=== PATIENT | female | born 2005 | race Caucasian/White ===

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

== ENCOUNTER 2025-04-16 17:46 | Emergency (ER) | payer OTHER, SELFPAY ==
[2025-04-16 17:47] VITALS: BP 128/80; PULSE 124; RESP 16; TEMP 37.1; O2SAT 98; BMI 23.9
--- NOTE | 2025-04-16 18:01 | EX.ED.DYSGE1 ---
HPI <RADHA Arnett - Last Filed: 04/16/25 20:33> History of Present Illness Chief Complaint: Abd Pain Narrative Narrative: 20-year-old female presents with cramping lower abdominal pain that started around noon. Pain is in both lower quadrants and radiates around to bilateral low back. She took ibuprofen, Tylenol, and methocarbamol which she had from prior surgery without relief. She has nausea but no vomiting. No fever or chills. She had a few episodes of diarrhea over the last 2 days but no melena hematochezia. No urinary symptoms. She had an abdominal surgery on March 19, 2025 at [facility] with [employer]ENT, Dr. Roya Hickman for endometrial excision with appendectomy and IUD placement. She had been recovering well from that. No other abdominal surgeries. She finished her menstrual cycle couple days ago. PFSH <RADHA Arnett - Last Filed: 04/16/25 20:33> [facility] Medical History no medical history Allergy/AdvReac Type Severity Reaction Status Date / Time [facility] AdvReac Mild Hives Verified 04/16/25 17:47 Family History no significant family his Surgical History no surgical history Social History Smoking Status: Never smoker ROS <RADHA Arnett - Last Filed: 04/16/25 20:33> ROS ED ROS Narrative Constitutional: Negative for fever, chills, malaise. CVS: Negative for chest pain. Respiratory: Negative for shortness of breath. GI: Positive for abdominal pain, nausea, diarrhea. Negative for vomiting, constipation, melena, hematochezia. : Negative for dysuria, hematuria or frequency. EXAM <RADHA Arnett Last Filed: 04/16/25 20:33> Physical Exam Narrative Exam Narrative: CONST: Patient sitting in no acute distress. EYES: Normal inspection. NECK: Normal inspection. RESP: No respiratory distress, CTAB. CVS: Regular rate and rhythm, no murmur, no gallop. ABD: Soft with mild suprapubic tenderness, otherwise nontender, no guarding or rebound, nondistended. SKIN: Color normal, no rash, warm, dry, intact. EXTREMITIES: Normal appearance, no pedal edema. NEURO: Alert and answering questions appropriately. PSYCH: Normal affect. Const Vital Signs: 04/16/25 17:47 04/16/25 19:48 Temperature 98.7 F Temperature Source Temporal Pulse Rate 124 H 79 Respiratory Rate 16 16 Blood Pressure 128/80 H 113/64 Blood Pressure Mean 96 80 Pulse Ox 98 99 Oxygen Delivery Method Room Air Room Air <Dr. Juan Jose Gerard MD - Last Filed: 04/16/25 19:09> Physical Exam Const Vital Signs: 04/16/25 17:47 04/16/25 19:48 Temperature 98.7 F Temperature Source Temporal Pulse Rate 124 H 79 Respiratory Rate 16 16 Blood Pressure 128/80 H 113/64 Blood Pressure Mean 96 80 Pulse Ox 98 99 Oxygen Delivery Method Room Air Room Air MDM <RADHA Arnett - Last Filed: 04/16/25 20:33> MDM MDM Narrative Medical decision making narrative: 20-year-old female was evaluated for suprapubic cramping pain that started earlier today. She has a history of endometriosis with surgery about a month ago for excision of adhesions and appendectomy at the same time. She appears well and nontoxic. She is tachycardic at 124 with otherwise normal vital signs. She has an extremely benign abdominal exam with minimal suprapubic tenderness. CBC and BMP are normal. Urinalysis has 5-10 RBCs and 10-25 WBCs but is nitrite and bacteria negative. She has no urinary symptoms so antibiotics are indicated and will be sent for culture. I do not think she needs a CT scan. I have low concern for an infectious process as she has a normal white count, is afebrile, and reports she had 2 recent CAT scans in the last month that were normal. She was treated with Toradol and counseled take [id number] medications and was discharged in stable condition. I have personally performed a face to face assessment of the patient and have reviewed the RAFAEL Note. I performed a substantive portion of the visit including all aspects of the following. My ponce findings include: History is 20-year-old female history of endometriosis region surgery for takedown of adhesions about a month ago and appendectomy at the same time. Said she was doing well. Had some suprapubic lower abdominal pelvic pain this afternoon. Nausea but no vomiting. No diarrhea. No dysuria. She has had 2 recent CAT scans last several weeks that were unremarkable. 1 locally and 1 in [place] when she was there traveling. Exam is [well-appearing 20-year-old female. Vital signs stable afebrile. She does not look septic toxic. She is in no acute distress. H EENT exam pupils round reactive light. Moist pink members. Neck nontender no JVD. Lungs clear to auscultation. Heart tachycardic 110 no murmur. Chest wall ribs nontender. Abdomen soft nondistended normal bowel sounds without peritoneal signs. Very mild suprapubic discomfort. No hernia or mass. No distention. No signs of obstruction. No localizing right upper or right lower quadrant tenderness. Very benign abdominal exam. Moving all 4 extremities. Nontender. No edema. Back nontender. Neurologically she is awake and alert. No focal motor deficits.] Medical Decision Making [20-year-old female history of endometriosis, prior appendectomy and history of ovarian cysts complaining of suprapubic lower abdominal and pelvic pain. Labs to be obtained. Exam is benign I do not think she needs imaging at this time.] Other additions or changes: [None] Lab Data Labs: Laboratory Results - last 24 hr 04/16/25 04/16/25 18:07 18:15 WBC 6.5 RBC 4.50 Hgb 13.2 Hct 38.9 MCV 86.4 MCH 29.3 MCHC 33.9 RDW Std Deviation 41.6 RDW Coeff of Bri 13.3 Plt Count 207 MPV 12.0 Immature Gran % (Auto) 0.200 Neut % (Auto) 59.1 Lymph % (Auto) 28.3 [place] % (Auto) 10.7 H Eos % (Auto) 1.1 Baso % (Auto) 0.6 Absolute Neuts (auto) 3.9 Absolute Lymphs (auto) 1.85 Nucleated RBC % 0 Sodium 138 Potassium 3.8 Chloride 103 Carbon Dioxide 22.6 Anion Gap 13 BUN 8 Creatinine 0.89 Estim Creat Clear Calc 79.08 Est GFR (MDRD) Non-Af 95 BUN/Creatinine Ratio 8.6 L Glucose 56 L Calcium 7.6 Serum , Qual NEGATIVE Urine Color Yellow Urine Clarity Cloudy Urine pH 7.0 Ur Specific [place] 1.015 Urine Protein 30 H Urine Glucose (UA) Normal Urine Ketones Negative Urine Occult Blood 250 H Urine Nitrite Negative Urine Bilirubin Negative Urine Urobilinogen 1 H Ur Leukocyte Esterase 500 H Urine RBC 5-10 SEEN Urine WBC 10-25 SEEN Ur Squamous Epith Cells 0-5 SEEN Urine Bacteria 0 SEEN Urine Mucus 0 SEEN <Dr. Juan Jose Gerard MD - Last Filed: 04/16/25 19:09> [facility] Narrative Medical decision making narrative: I have personally performed a face to face assessment of the patient and have reviewed the RAFAEL Note. I performed a substantive portion of the visit including all aspects of the following. My ponce findings include: History is 20-year-old female history of endometriosis region surgery for takedown of adhesions about a month ago and appendectomy at the same time. Said she was doing well. Had some suprapubic lower abdominal pelvic pain this afternoon. Nausea but no vomiting. No diarrhea. No dysuria. She has had 2 recent CAT scans last several weeks that were unremarkable. 1 locally and 1 in [place] when she was there traveling. Exam is [well-appearing 20-year-old female. Vital signs stable afebrile. She does not look septic toxic. She is in no acute distress. H EENT exam pupils round reactive light. Moist pink members. Neck nontender no JVD. Lungs clear to auscultation. Heart tachycardic 110 no murmur. Chest wall ribs nontender. Abdomen soft nondistended normal bowel sounds without peritoneal signs. Very mild suprapubic discomfort. No hernia or mass. No distention. No signs of obstruction. No localizing right upper or right lower quadrant tenderness. Very benign abdominal exam. Moving all 4 extremities. Nontender. No edema. Back nontender. Neurologically she is awake and alert. No focal motor deficits.] Medical Decision Making [20-year-old female history of endometriosis, prior appendectomy and history of ovarian cysts complaining of suprapubic lower abdominal and pelvic pain. Labs to be obtained. Exam is benign I do not think she needs imaging at this time.] Other additions or changes: [None] History & Record Review Discussion w/independent historian: Patient Additional record(s) reviewed:: Prior inpatient record, Prior outpatient record, Prior ED visit and Prior labs Lab Data Attestation: I reviewed the patient's lab results. Lab results narrative: CBC shows a white count of 6. H&H 13 and 38. Platelets 207. Serum test negative. UA has occult blood. Labs: Laboratory Results - last 24 hr 04/16/25 04/16/25 18:07 18:15 WBC 6.5 RBC 4.50 Hgb 13.2 Hct 38.9 MCV 86.4 MCH 29.3 MCHC 33.9 RDW Std Deviation 41.6 RDW Coeff of Bri 13.3 Plt Count 207 MPV 12.0 Immature Gran % (Auto) 0.200 Neut % (Auto) 59.1 Lymph % (Auto) 28.3 [place] % (Auto) 10.7 H Eos % (Auto) 1.1 Baso % (Auto) 0.6 Absolute Neuts (auto) 3.9 Absolute Lymphs (auto) 1.85 Nucleated RBC % 0 Sodium 138 Potassium 3.8 Chloride 103 Carbon Dioxide 22.6 Anion Gap 13 BUN 8 Creatinine 0.89 Estim Creat Clear Calc 79.08 Est GFR (MDRD) Non-Af 95 BUN/Creatinine Ratio 8.6 L Glucose 56 L Calcium 7.6 Serum , Qual NEGATIVE Urine Color Yellow Urine Clarity Cloudy Urine pH 7.0 Ur Specific [place] 1.015 Urine Protein 30 H Urine Glucose (UA) Normal Urine Ketones Negative Urine Occult Blood 250 H Urine Nitrite Negative Urine Bilirubin Negative Urine Urobilinogen 1 H Ur Leukocyte Esterase 500 H Urine RBC 5-10 SEEN Urine WBC 10-25 SEEN Ur Squamous Epith Cells 0-5 SEEN Urine Bacteria 0 SEEN Urine Mucus 0 SEEN Discharge Plan Triage Chief Complaint: Abd Pain ED Midlevel Provider: Sandy Doss ED Provider: Juan Jose Gerard Dx/Rx/DC Orders Clinical Impression: Abdominal pain, History of endometriosis Instructions: Abdominal Pain Primary Care Provider: Kay Mosher Referrals: Kay Mosher MD [Primary Care Provider] - Activity Restrictions/Additional Instructions: You can take Tylenol 1000 mg and ibuprofen 600 mg every 6 hours as needed. Follow-up with your primary care or [employer]. Print Language: Nauruan Disposition Disposition: Home, Self Care
[2025-04-16] MEDS: Ondansetron 4 MG/2 ML Vial IV (18:05)
[2025-04-16] MEDS: 0.9% Normal Saline (1000mL) 1,000 ML 999 ML IV (18:06)
[2025-04-16] MEDS: Ketorolac 15 MG/ML Vial IV (18:06)
[2025-04-16 18:13] LABS: Absolute Lymphocyte Count 1.85 X10^3/uL (0.83-4.51); Absolute Neutrophil Count 3.9 X10^3/uL (2.0-7.7); Basophil# 0.04 X10^3/uL; Basophil% 0.6 % (0-1); Eosinophil# 0.07 X10^3/uL; Eosinophils% 1.1 % (0-5); Hematocrit 38.9 % (37-47); Hemoglobin 13.2 g/dL (12.0-15.0); Lymphocyte # 1.85 X10^3/ul (0.83-4.51); Lymphocyte % 28.3 % (19-41); Mean Corp Hgb Conc 33.9 g/dL (32-36); Mean Corpuscular Hgb 29.3 pg (27.0-32.0); Mean Corpuscular Volume 86.4 fL (81-99); Monocyte% 10.7 % (0-10); NRBC Flagged by Analyzer 0 % (0-5); Neutrophil # 3.86 X10^3/uL (2.7-7.7); Neutrophil % 59.1 % (47-70); Platelet Count 207 K/mm3 (150-450); RBC Distribution Width CV 13.3 % (11.6-14.6); RBC Distribution Width SD 41.6 fl (35.1-43.9); White Blood Count 6.5 K/mm3 (4.4-11.0)
[2025-04-16 18:31] LABS: Bacteria 0 SEEN /hpf (None Seen); Mucous, Urine 0 SEEN /hpf (<or=2+)
[2025-04-16 18:36] LABS: Color, Urine Yellow (Yellow); Glucose, Dipstick Normal (Normal); Ketone-Dipstick Negative (Negative); Leukocyte Esterase-Dipstick 500 /ul (Negative); Nitrite-Dipstick Negative (Negative); Occult Blood-Urine 250 /ul (Negative); Protein-Dipstick 30 mg/dl (Negative); Specific Gravity, Urine 1.015 (1.002-1.030); Urine Bilirubin Dipstick Negative (Negative); Urine Clarity Cloudy (Clear); Urine Urobilinogen 1 mg/dl (Normal)
[2025-04-16 18:39] LABS: Internal QC Validated? YES +Cl - CLEAR BKGD; Pregnancy, Serum, hCG Quali. NEGATIVE Negative; Record Kit Lot#, Serum Preg. 947241
[2025-04-16 18:55] LABS: BUN 8 mg/dL (4-19); BUN/Creat Ratio 8.6 RATIO (10-20); Calcium,Total 7.6 mg/dL (7.6-11.0); Chloride 103 mmol/L (98-108); Creatinine, Serum 0.89 mg/dL (0.70-1.20); EST Glomerular Filtration Rate 95 (>60); Estimated Creatinine Clearance 79.08 ml/min (50-250); Glucose 56 mg/dL (70-99); Potassium 3.8 mmol/L (3.3-5.1); Sodium Level 138 mmol/L (133-145)
[2025-04-16 18:57] LABS: Anion Gap 13 (5-15); Carbon Dioxide 22.6 mmol/L (21.0-32.0)
[2025-04-16 19:48] VITALS: BP 113/64; PULSE 79; RESP 16; O2SAT 99
[2025-04-16 19:59] LABS: White Blood Cells 10-25 SEEN /hpf (0-5)
[2025-04-16 20:00] LABS: Red Blood Cells-Urine 5-10 SEEN /hpf (0-5); Squamous Epithelial Cells - UA 0-5 SEEN /hpf (5-10)
[2025-04-16] MEDS: Dicyclomine 10 MG Capsule 20 MG PO (20:20)
[2025-04-16 20:33] VITALS: BP 117/74; PULSE 78; RESP 14; TEMP 36.6; O2SAT 99
== END 2025-04-16 20:34 | disposition home or self-care (01) ==
PROVIDERS: Physician Assistant; Emergency Provider Emergency Medicine; PCP Pediatrics; Referring Provider Emergency Medicine; Visit Provider Emergency Medicine
DX: R10.31 Right lower quadrant pain (principal); R10.32 Left lower quadrant pain; R19.7 Diarrhea, unspecified; R11.0 Nausea; M54.50 Low back pain, unspecified; R00.0 Tachycardia, unspecified; Z97.5 Presence of (intrauterine) contraceptive device; Z87.42 Personal history of other diseases of the female genital tract
CPT/HCPCS: 80048; 81001; 84703; 85025; 87086; 96361; 96374; 96375; 99283; A4216; J2405